=== PATIENT | female | born 1990 | race African-American/Black ===

== ENCOUNTER 2023-02-15 22:52 | Emergency (ER) | payer OTHER ==
[2023-02-15 23:28] LABS: Protime INR 0.97
[2023-02-15 23:29] LABS: Absolute Lymphocytes (CBC) 3.5 K/uL (0.7-4.9); Hematocrit 39.4 % (36.0-45.0); Lymphocytes % 33.9 % (15.3-44.8); MCV 86.6 fL (80-100); MPV 8.3 fL (7.6-11.3); Platelets 271 thou/uL (152-406); RBC Red Blood Cell Count 4.55 M/uL (3.86-4.86)
[2023-02-15] MEDS ORDERED: MORPHINE 4 MG/ML SYR ONE (23:29)
[2023-02-15] MEDS ORDERED: NA CHLORIDE 0.9% 1,000 ML ONE (23:30)
[2023-02-15] MEDS ORDERED: ONDANSETRON 4 MG/2 ML VIAL ONE (23:30)
[2023-02-15 23:35] LABS: Potassium 4.1 mEq/L (3.5-5.1)
[2023-02-16] MEDS ORDERED: MORPHINE 4 MG/ML SYR ONE (00:52)
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
[2023-02-16] MEDS ORDERED: ONDANSETRON 4 MG/2 ML VIAL ONE (04:41)
[2023-02-16] MEDS ORDERED: HYDROMORPHONE HCL 2 MG/ML inj ONE (04:41)
[2023-02-16 05:32] VITALS: O2SAT 100
[2023-02-16 05:35] VITALS: TEMP 98.4
[2023-02-16 05:37] VITALS: BP 115/72
== END 2023-02-16 05:01 | disposition short-term general hospital (02) ==
LOC: ER 22:52
DX: S22.42XA Multiple fractures of ribs, left side, initial encounter for closed fracture (principal); S27.0XXA Traumatic pneumothorax, initial encounter; V43.52XA Car driver injured in collision with other type car in traffic accident, initial encounter; Y93.89 Activity, other specified; Y92.488 Other paved roadways as the place of occurrence of the external cause
CPT/HCPCS: 96361; 85025; 80048; 36415; 86900; 86850; 85610; 82565; 86901; 70450; 72125; 71260; 74177; 71045; 96375; 96374; 99285; Q9967; J1170; J2405 ×2; J7030